=== PATIENT | male | born 1980 | race Caucasian/White ===

== ENCOUNTER 2017-02-10 12:17 | Emergency (ER) | payer OTHER ==
[2017-02-10 13:07] LABS: BASOPHIL 0.8 % (0-2); EOSINOPHIL 5.2 % (0-5); HCT 44.2 % (42.0-52.0); HGB 15.1 g/dl (13.2-18.0); LYMPHOCYTE 30.3 % (15-48); MCHC 34.2 g/dL (32.0-36.0); MCV 87.9 fL (78.0-100.0); MONOCYTE 10.4 % (0-12); NEUTROPHIL 53.3 % (41-80); PLT 355 K/uL (150-400); RBC 5.03 M/uL (4.70-6.00); RDW 14.1 % (11.5-14.0); WBC 8.5 K/uL (4.0-10.5)
[2017-02-10 13:11] LABS: BILIRUBIN NEGATIVE (NEGATIVE); BLOOD NEGATIVE Ery/uL (NEGATIVE); CLARITY CLEAR (CLEAR); COLOR YELLOW (YELLOW); GLUCOSE (U) NORMAL (NORMAL); KETONE (U) NEGATIVE (NEGATIVE); LEUKOCYTES NEGATIVE Leu/uL (NEGATIVE); NITRITE NEGATIVE (NEGATIVE); PROTEIN NEGATIVE (NEGATIVE); SPECIFIC GRAVITY >=1.030 (1.001-1.030); UROBILINOGEN 0.2 mg/dL (0.2-1.0); pH 5.5 (5.0-9.0)
[2017-02-10 13:21] LABS: ALBUMIN 4.3 g/dL (3.5-5.0); BILIRUBIN - TOTAL 0.6 mg/dL (0.1-1.0); GLOBULIN (CALCULATION) 2.7 g/dL (2.2-4.2); POTASSIUM 3.7 mmol/L (3.5-5.1)
== END 2017-02-10 14:56 | disposition home or self-care (01) ==
LOC: FER 12:17
PROVIDERS: Emergency Medicine
DX: B34.9 Viral infection, unspecified (principal); E78.5 Hyperlipidemia, unspecified
CPT/HCPCS: 36415; 80053; 81003; 82150; 83690; 85025; 99284